=== PATIENT | female | born 2005 | race Caucasian/White ===

== ENCOUNTER 2023-05-20 21:53 | Emergency (ER) | payer OTHER, SELFPAY ==
[2023-05-20 21:56] VITALS: PULSE 67; RESP 18; TEMP 36.7; O2SAT 98; BMI 15.4
--- NOTE | 2023-05-20 22:06 | ECG_ITS ---
[facility] Test Date: 2023-05-20 Pat Name: Bibi Alamo Department: Room: - Gender: Female Manager Fixed Income: : 2005 Requested By: Order Number: [id number] Reading MD: TIARA HOLCOMB Measurements Intervals [place] Rate: 67 P: 36 NM: 148 QRS: 98 QRSD: 88 T: 47 QT: 396 QTc: 411 Interpretive Statements 1100 Sinus rhythm 7102 Moderate right axis deviation 9110 normal ECG No previous ECG available for comparison Electronically Signed On 05-21-2023 7:04:27 EST by TIARA HOLCOMB
--- NOTE | 2023-05-20 22:06 | XR_ITS ---
The [address] [address] Patient Name: WILFREDO HUMPHRIES MRN: [id number] date: 2005 Sex: F Assigned Patient Location: ER Current Patient Location: ED.MAIN Accession/Order Number: [id number] Exam Date: 05/20/2023 22:15 Report Date: 05/20/2023 22:32 At the request of: LISBET IRWIN Procedure: XR chest 1V EXAMINATION: CHEST RADIOGRAPH (PORTABLE SINGLE VIEW AP) Exam Date/Time: 05/20/2023 10:15 PM EST Clinical History: chest pain Comparison: None available RESULT: Lines, tubes, and devices: None. Lungs and pleura: No focal consolidation. No pneumothorax. No pleural effusion. Cardiomediastinal silhouette: Stable cardiomediastinal silhouette. Other: No acute osseous process. XR/XR chest 1V IMPRESSION: No acute cardiopulmonary abnormality. Electronically authenticated by: LUIS M RASHEED Date: 05/20/2023 22:32
--- NOTE | 2023-05-20 22:08 | ED.GENADUL1 ---
HPI - General Adult General Chief complaint: Chest Pain Stated complaint: CHEST PAIN/SOB Time Seen by Provider: 05/20/23 21:54 Source: patient Mode of arrival: walk-in Limitations: no limitations History of Present Illness HPI narrative: 18-year-old female presents for pain in her lower anterior neck. It started at 5:30. She was sitting on a couch when it started. Earlier in the day she had gotten into an argument with her mother. There was no injury. She hasn't had a fever or palpitations or back pain and doesn't complain of chest pain. No fever. No palpitations. Related Data Allergies Allergy/AdvReac Type Severity Reaction Status Date / Time No Known Drug Allergies Allergy Verified 05/20/23 21:56 Review of Systems ROS Narrative A ten point review of systems is negative except as noted above. [facility] Medical History (Updated 05/20/23 @ 22:40 by Neri White MD) Scoliosis ?M41.9 - Scoliosis, unspecified (ICD-10) Social History Smoking status: Current every day smoker Exam Narrative Exam Narrative: Nurses note and vital signs reviewed and patient is not hypoxic. General: The patient appears well and in no apparent distress. Patient is resting comfortably on cart. Skin: Warm, dry, no pallor noted. There is no rash noted. Head: Normocephalic, atraumatic Eye: Normal conjunctiva, no drainage Ears, Nose, Mouth, and Throat: oral mucosa is moist. Nares patent. no pharyngeal erythema or exudate or swelling. She is handling her oral secretions well. Neck has no masses or swelling or bruising or rash or abrasions. Cardiovascular: Regular Rate and Rhythm Respiratory: Patient is in no distress, no accessory muscle use, lungs are clear to auscultation, no wheezing, rales or rhonchi Back: non-tender, GI: soft and nontender Musculoskeletal: The patient has no evidence of calf tenderness, no pitting edema, symmetrical pulses noted bilaterally Neurological: A&O, normal speech Psychiatric: Cooperative Constitutional Vital Signs, click to edit/add: Last Vital Signs Temp 98.0 F 05/20/23 21:56 Pulse 67 05/20/23 21:56 Resp 18 05/20/23 21:56 Pulse Ox 98 05/20/23 21:56 O2 Del Method Room Air 05/20/23 21:56 Course Vital Signs Vital signs: Vital Signs Temperature 98.0 F 05/20/23 21:56 Pulse Rate 67 05/20/23 21:56 Respiratory Rate 18 05/20/23 21:56 Pulse Oximetry 98 05/20/23 21:56 Oxygen Delivery Method Room Air 05/20/23 21:56 Temperature 98.0 F 05/20/23 21:56 Pulse Rate 67 05/20/23 21:56 Respiratory Rate 18 05/20/23 21:56 Pulse Oximetry 98 05/20/23 21:56 Oxygen Delivery Method Room Air 05/20/23 21:56 Medical Decision Making MDM Narrative Medical decision making narrative: her workup is negative. I suspect that her symptoms are due to stress. Treatment diagnosis and follow-up were discussed with the patient Differential Diagnosis Differential Diagnosis: distress, strep throat, anxiety, pneumothorax, pneumonia Lab Data Lab results reviewed: Yes I reviewed the patient's lab results Labs: Lab Results 05/20/23 Range/Units 22:15 Streptococcus Screen Negative Imaging Data Chest x-ray: Radiologist's impression: no acute findings per radiologist ECG Data Attestation: I personally reviewed and interpreted this ECG as follows: (EKG on my interpretation shows normal sinus rhythm with a rate of 67.) Discharge Plan Discharge Chief Complaint: Chest Pain Clinical Impression: Anxiety Patient Disposition: Home, Self-Care Time of Disposition Decision: 22:40 Condition: Good Mode of Transportation: Private Vehicle Instructions: Anxiety (ED) Stand Alone Forms: Portal Instructions Referrals: NELSY MORRIS [Physician] - 1 week
--- NOTE | 2023-05-20 22:13 | PC.NURSE ---
pain that is more in the neck/throat and is described as a lump feeling. She states that when she swallows, the pain seems to go farther down into the chest. There was no injury, no event that seemed to start the pain. Deep breaths and swallowing make the pain worse
[2023-05-20 22:34] LABS: Internal Control Within Normal Limits; Strep A Antigen Screen Negative
== END 2023-05-20 22:53 | disposition home or self-care (01) ==
PROVIDERS: Emergency Provider Emergency Medicine; PCP Nurse Practitioner
DX: F41.9 Anxiety disorder, unspecified (principal); R07.9 Chest pain, unspecified
CPT/HCPCS: 71045; 87070; 87880; 93005; 99285